=== PATIENT | female | born 1980 | race Caucasian/White ===

== ENCOUNTER 2016-08-22 15:50 | Emergency (ER) | payer BC, OTHER ==
[2016-08-22 16:34] VITALS: BP 150/82
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
== END 2016-08-22 17:05 | disposition home or self-care (01) ==
LOC: KA.ED 15:50
DX: S13.4XXA Sprain of ligaments of cervical spine, initial encounter (principal); Z88.5 Allergy status to narcotic agent; Z88.8 Allergy status to other drugs, medicaments and biological substances; V89.2XXA Person injured in unspecified motor-vehicle accident, traffic, initial encounter
CPT/HCPCS: 70450; 99284

== ENCOUNTER 2023-05-28 19:43 | Emergency (ER) | payer SELFPAY ==
[2023-05-28] MEDS: Sodium Chloride 0.9% 1,000 ML IV ONE (20:05)
[2023-05-28] MEDS: Ondansetron 4 MG/2 ML SDV IVPUSH ONE (20:10)
[2023-05-28] MEDS: HYDROmorphone 1 MG/ML Syringe IVPUSH ONE (20:15)
[2023-05-28] MEDS: Ondansetron 4 MG/2 ML SDV ONE (20:28)
[2023-05-28] MEDS: Sodium Chloride 0.9% 1,000 ML ONE (20:28)
[2023-05-28] MEDS: HYDROmorphone 1 MG/ML Syringe ONE (20:28)
[2023-05-28 20:37] VITALS: BP 132/82; PULSE 99
[2023-05-28 20:37] LABS: APPEARANCE,URINE CLOUDY (CLEAR); BILIRUBIN,URINE NEGATIVE (NEGATIVE); COLOR,URINE YELLOW (YELLOW); GLUCOSE,URINE NEGATIVE (NEGATIVE); KETONES,URINE TRACE mg/dL (NEGATIVE); LEUKOCYTE ESTERASE,URINE NEGATIVE (NEGATIVE); NITRITE,URINE NEGATIVE (NEGATIVE); OCCULT BLOOD,URINE LARGE (NEGATIVE); PROTEIN,URINE TRACE mg/dL (NEGATIVE); UROBILINOGEN,URINE 0.2 E.U./dL (0.2-1.0)
[2023-05-28 20:38] LABS: BASOPHILS ABSOLUTE AUTO 0.02 10^3/uL (0.00-0.10); BASOPHILS PERCENT AUTO 0.2 % (0.0-1.0); EOSINOPHILS ABSOLUTE AUTO 0.06 10^3/uL (0.10-0.30); EOSINOPHILS PERCENT AUTO 0.5 % (1.0-3.0); HEMATOCRIT 41.4 % (37.0-47.0); HEMOGLOBIN 13.9 g/dL (12.0-16.0); IMMATURE GRAN ABSOLUTE AUTO 0.04 10^3/uL (0.00-0.50); IMMATURE GRAN PERCENT AUTO 0.4 % (0.0-5.0); LYMPHOCYTES ABSOLUTE AUTO 1.81 10^3/uL (1.00-4.00); LYMPHOCYTES PERCENT AUTO 15.9 % (20.0-40.0); MEAN CORPUSCULAR HEMOGLOBIN 29.6 pg (27.0-31.0); MEAN CORPUSCULAR HGB CONC 33.6 g/dL (32.0-36.0); MEAN CORPUSCULAR VOLUME 88.3 fL (82.0-92.0); MEAN PLATELET VOLUME 9.2 fL (7.4-10.4); MONOCYTES ABSOLUTE AUTO 0.58 10^3/uL (0.10-0.80); MONOCYTES PERCENT AUTO 5.1 % (2.0-8.0); NEUTROPHILS ABSOLUTE AUTO 8.85 10^3/uL (2.50-7.00); NEUTROPHILS PERCENT AUTO 77.9 % (50.0-70.0); PLATELET COUNT,PLT 256 10^3/uL (150-400); RED BLOOD CELL COUNT 4.69 10^6/uL (3.80-5.50); RED CELL DISTRIBUTION WIDTH 11.7 % (11.5-14.5); WHITE BLOOD CELL COUNT,WBC 11.36 10^3/uL (5.00-10.00)
[2023-05-28 20:39] LABS: ALBUMIN 3.86 g/dL (3.40-5.00); ANION GAP 16.4 mmol/L (5-15); BILIRUBIN TOTAL 0.3 mg/dL (0.2-1.0); CALCIUM 8.9 mg/dL (8.7-10.3); CARBON DIOXIDE,CO2 23.7 mmol/L (21.0-32.0); CREATININE 0.77 mg/dL (0.51-1.17); EST CRCL DRUG DOSING (CG) 83.02 mL/min; POTASSIUM,K 4.1 mmol/L (3.5-5.1); PROTEIN TOTAL,TP 7.2 g/dL (6.4-8.2)
[2023-05-28 20:40] LABS: BACTERIA,URINE RARE /HPF (NONE TO FEW); EPITHELIAL CELLS,URINE FEW /LPF; MUCUS,URINE FEW /LPF (NEGATIVE); RBC,URINE 50-75 /HPF (0-5); WBC,URINE 0-5 /HPF (0-5)
== END 2023-05-28 21:24 | disposition home or self-care (01) ==
LOC: KA.ED 19:43
DX: N20.0 Calculus of kidney (principal); K21.9 Gastro-esophageal reflux disease without esophagitis; Z88.5 Allergy status to narcotic agent; Z88.8 Allergy status to other drugs, medicaments and biological substances; Z79.899 Other long term (current) drug therapy
CPT/HCPCS: 74176; 80053; 81001; 85025; 96361; 96374; 96375; 99283; 99284-25; J1170; J2405; J7030